=== PATIENT | female | born 1975 | race African-American/Black ===

== ENCOUNTER 2017-12-24 08:20 | Emergency (ER) | payer BC, OTHER ==
[2017-12-24] MEDS ORDERED: Dexamethasone 4 mg/ml Vial ONE (09:22)
[2017-12-24] MEDS ORDERED: Ibuprofen 200 MG TAB ONE (09:22)
[2017-12-24] MEDS ORDERED: Bicillin LA 1.2 MILLION UNITS/2 ML SYRINGE ONE (09:25)
== END 2017-12-24 09:52 | disposition home or self-care (01) ==
LOC: ERS 08:20
DX: J02.0 Streptococcal pharyngitis (principal); I10 Essential (primary) hypertension; Z79.899 Other long term (current) drug therapy
CPT/HCPCS: 87430; 96372; J0561; J1100

== ENCOUNTER 2020-06-09 10:45 | Outpatient (CLI) | payer OTHER | END 2020-06-09 10:46 | disposition home or self-care (01) | LOC: DTY/OP 10:45 | PROVIDERS: ATTEND Surgery | DX: E66.01 Morbid (severe) obesity due to excess calories (principal) | CPT/HCPCS: 97802 ==

== ENCOUNTER 2020-07-28 12:41 | Outpatient (CLI) | payer OTHER ==
[2020-07-28 15:45] LABS: ALT (SGPT) 32 U/L (8-55); AST (SGOT) 28 U/L (5-34); Albumin 4.2 g/dL (3.5-5.0); Alkaline Phosphatase 112 U/L (40-110); Anion Gap 14 mmol/L (10-20); BUN (Urea Nitrogen) 15 mg/dL (7.0-18.7); Bilirubin, Total 0.5 mg/dL (0.2-1.2); Calc. Creatinine Clearance 0 mL/min (70-130); Calcium 9.3 mg/dL (7.8-10.44); Carbon Dioxide 27 mmol/L (22-29); Chloride 102 mmol/L (98-107); Glucose 84 mg/dL (70-105); Potassium 3.6 mmol/L (3.5-5.1); Protein, Total 8.2 g/dL (6.0-8.3); Sodium 139 mmol/L (136-145)
[2020-07-28 15:54] LABS: #Basophils 0.1 10x3/uL (0.0-0.2); #Eosinphils 0.2 10x3/uL (0.0-0.5); #Monocytes 0.6 10x3/uL (0.0-1.1); %Eosinophils 1.9 % (0.0-6.0); %Monocytes 7.8 % (0.0-10.0); Mean Corpuscular HGB CONC 33.3 g/dL (32.0-36.0); Mean Corpuscular Hemoglobin 29.9 pg (27.0-33.0); Mean Corpuscular Volume 89.7 fl (81.6-98.3); Mean Platelet Volume 9.7 fl (7.4-10.4); Platelet Count 334 10x3/uL (150-450); RBC Distribution Width 12.7 % (11.5-14.5); Red Blood Cell (RBC) Count 4.35 10x6/uL (3.90-5.03); White Blood Cell (WBC) Count 7.7 10x3/uL (3.5-10.5)
[2020-07-28 15:59] LABS: #Neutrophils 3.3 10x3/uL (1.5-8.4); %Neutrophils 43.3 % (40.0-75.0)
[2020-07-28 20:38] LABS: Hemoglobin A1c 5.5 % (4.0-6.0)
[2020-07-29 00:37] LABS: SARS-CoV-2 PCR by NAA Not Detected (NotDetected)
== END 2020-07-28 12:42 | disposition home or self-care (01) ==
LOC: LABBT 12:41
PROVIDERS: ATTEND Surgery
DX: Z01.818 Encounter for other preprocedural examination (principal); E66.01 Morbid (severe) obesity due to excess calories; Z20.822 Contact with and (suspected) exposure to COVID-19
CPT/HCPCS: 71046; 80053; 83036; 85025; 87635; 93005; 93010; U0003; U0005

== ENCOUNTER 2020-08-09 13:29 | Outpatient (CLI) | payer OTHER ==
[2020-08-10 04:03] LABS: SARS-CoV-2 PCR by NAA Not Detected (NotDetected)
== END 2020-08-09 13:30 | disposition home or self-care (01) ==
LOC: LABBT 13:29
PROVIDERS: ATTEND Surgery
DX: Z01.812 Encounter for preprocedural laboratory examination (principal); E66.01 Morbid (severe) obesity due to excess calories; Z20.822 Contact with and (suspected) exposure to COVID-19
CPT/HCPCS: 87635; U0003; U0005

== ENCOUNTER 2020-08-12 07:12 | Inpatient (IN) | payer OTHER ==
[2020-08-11 09:45] VITALS: BMI 37.9
[2020-08-12] MEDS ORDERED: Scopolamine 1.5 mg/72 hour Patch ONE (07:59)
[2020-08-12] MEDS ORDERED: Midazolam HCl 2 mg/2 ml Vial ONE ×2 (07:59→08:29)
[2020-08-12] MEDS ORDERED: Heparin 5,000 UNITS/ML VIAL ONE (07:59)
[2020-08-12] MEDS ORDERED: Bupivacaine 0.25% HCL 30 ML VIAL ONE (08:27)
[2020-08-12] MEDS ORDERED: Lidocaine 2% w/Epinephrine 1:200K 20 ML VIAL ONE (08:27)
[2020-08-12] MEDS ORDERED: Fentanyl 100 MCG/2 ML VIAL ONE (08:29)
[2020-08-12] MEDS ORDERED: Dexamethasone 20 MG/5 ML VIAL ONE (08:55)
[2020-08-12] MEDS ORDERED: PROPOFOL 200 MG/20 ML VIAL ONE (08:55)
[2020-08-12] MEDS ORDERED: Lidocaine 1% PF 5 ML VIAL ONE (08:55)
[2020-08-12] MEDS ORDERED: Ondansetron PF 4 MG/2 ML Vial ONE (08:55)
[2020-08-12] MEDS ORDERED: Ketorolac Tromethamine 30 MG/ML VIAL ONE (08:55)
[2020-08-12] MEDS ORDERED: Glycopyrrolate 0.2 MG/ML 5 ML SYRINGE ONE (08:55)
[2020-08-12] MEDS ORDERED: Rocuronium Bromide 10 MG/ML (10ML VIAL) ONE (08:55)
[2020-08-12] MEDS ORDERED: PHENYLEPHRINE-NS 100 MCG/ML 10 ML SYRINGE ONE (08:55)
[2020-08-12] MEDS ORDERED: Promethazine HCl 25 MG/ML VIAL IM PRN ×3 (09:39→10:44)
[2020-08-12] MEDS ORDERED: Ondansetron HCl/PF 4 MG/2 ML Vial IVP PRN (09:39)
[2020-08-12] MEDS ORDERED: Meperidine HCl/PF 25 MG/ML VIAL SLOW IVP PRN (09:39)
[2020-08-12] MEDS ORDERED: Promethazine HCl 25 MG/ML VIAL SLOW IVP PRN (09:39)
[2020-08-12] MEDS ORDERED: Dextrose 5% in Water 1,000 ML IV PRN (10:11)
[2020-08-12] MEDS ORDERED: Dextrose 50% Abboject 50 ML SYRINGE SLOW IVP PRN (10:11)
[2020-08-12] MEDS ORDERED: Ondansetron PF 4 MG/2 ML Vial IVP PRN (10:11)
[2020-08-12] MEDS ORDERED: diphenhydrAMINE 50 MG/ML VIAL IVP PRN ×2 (10:11→10:44)
[2020-08-12] MEDS ORDERED: Hydrocodone-Acetamin 15 ML UDCUP PO PRN (10:11)
[2020-08-12] MEDS ORDERED: hydrALAZINE 20 MG/ML VIAL SLOW IVP PRN (10:11)
[2020-08-12] MEDS ORDERED: diphenhydrAMINE 50 MG/ML VIAL IM PRN (10:44)
[2020-08-12] MEDS ORDERED: fentaNYL Citrate/PF 2,000 MCG in Sodium Chloride 0.9% 60 ML IV PRN (10:44)
[2020-08-12] MEDS ORDERED: Zolpidem Tartrate 5 MG TAB PO PRN (10:44)
[2020-08-12] MEDS ORDERED: diphenhydrAMINE 25 MG CAP PO PRN (10:44)
[2020-08-12] MEDS ORDERED: Naloxone HCl 0.4 mg/ml Vial IV PRN (10:44)
[2020-08-12] MEDS ORDERED: Sodium Chloride 0.9% (PF) 10 ML VIAL FS PRN (10:45)
[2020-08-12] MEDS ORDERED: Communication Order-Pharmacy FS SCH (10:45)
[2020-08-12] MEDS ORDERED: Promethazine HCl 25 MG/ML VIAL ONE (11:07)
[2020-08-12] MEDS ORDERED: hydrALAZINE 20 MG/ML VIAL ONE (11:39)
[2020-08-12] MEDS: D5 1/2 NS w/20 mEq KCL 1,000 ML IV SCH ×3 (13:11→23:33)
[2020-08-12] MEDS: CEFAZOLIN 2 GM in Premix Bag 1 BAG IVPB SCH ×2 (16:15→23:34)
[2020-08-12] MEDS: Ondansetron PF 4 MG/2 ML Vial IVP PRN (23:34)
[2020-08-13 06:56] LABS: #Monocytes 0.8 thou/uL (0.11-0.59); #Neutrophils 10.8 thou/uL (1.40-6.50); %Basophils 0.3 % (0.0-1.0); %Eosinophils 0.2 % (0.0-10.0); %Lymphocytes 14.9 % (21.0-51.0); %Monocytes 5.8 % (0.0-10.0); %Neutrophils 78.8 % (42.0-75.0); Hemoglobin 13.7 g/dL (12.0-16.0); Mean Corpuscular HGB CONC 35.8 g/dL (32.0-36.0); Mean Corpuscular Hemoglobin 32.4 pg (27.0-31.0); Mean Corpuscular Volume 90.6 fL (78.0-98.0); Mean Platelet Volume 6.8 fL (7.4-10.4); Platelet Count 325 thou/uL (130-400); RBC Distribution Width 12.4 % (11.5-14.5); Red Blood Cell (RBC) Count 4.23 mill/uL (4.20-5.40); White Blood Cell (WBC) Count 13.7 thou/uL (4.8-10.8)
[2020-08-13 07:11] LABS: Anion Gap 11 mmol/L (10-20); BUN (Urea Nitrogen) 6 mg/dL (7.0-18.7); Calc. Creatinine Clearance 175 mL/min (70-130); Calcium 9.1 mg/dL (7.8-10.44); Carbon Dioxide 27 mmol/L (22-29); Chloride 101 mmol/L (98-107); Glucose 133 mg/dL (70-105); Potassium 3.7 mmol/L (3.5-5.1); Sodium 135 mmol/L (136-145)
[2020-08-13] MEDS ORDERED: Pantoprazole 40 MG VIAL IVP SCH (09:00)
[2020-08-13] MEDS ORDERED: Enoxaparin Sodium 40 MG/0.4 ML SYRINGE SC SCH (09:00)
[2020-08-13] MEDS ORDERED: Amlodipine 5 MG TAB PO SCH (09:00)
[2020-08-13] MEDS: D5 1/2 NS w/20 mEq KCL 1,000 ML IV SCH (09:17)
[2020-08-13] MEDS: Ondansetron PF 4 MG/2 ML Vial IVP PRN (09:27)
[2020-08-13 10:57] VITALS: BP 155/98; TEMP 97.8
[2020-08-13] MEDS ORDERED: Hydrocodone-Acetamin 15 ML UDCUP PO PRN (12:15)
== END 2020-08-13 14:15 | disposition home or self-care (01) | DRG 621 ==
LOC: SDC 07:12 → SURG A 10:11
PROVIDERS: ADMIT Surgery; ATTEND Surgery
PROC: 0DB64Z3 Excision of Stomach, Percutaneous Endoscopic Approach, Vertical (ICD-10-PCS; principal; 2020-08-12)
PROC: 0DJ68ZZ Inspection of Stomach, Via Natural or Artificial Opening Endoscopic (ICD-10-PCS; 2020-08-12)
DX: E66.01 Morbid (severe) obesity due to excess calories (principal); I10 Essential (primary) hypertension; M19.90 Unspecified osteoarthritis, unspecified site; Z90.710 Acquired absence of both cervix and uterus; Z68.37 Body mass index [BMI] 37.0-37.9, adult
CPT/HCPCS: 36415; 80048; 85025; 88307; 88312; C9113; J0360; J0690; J1100; J1644; J1650; J1885; J2250; J2405; J2550; J2704; J3010; J3480; J3490; S0020

== ENCOUNTER 2020-12-16 03:06 | Emergency (ER) | payer OTHER ==
[2020-12-16] MEDS ORDERED: Meclizine HCl 25 MG TAB ONE (04:20)
[2020-12-16] MEDS ORDERED: Ondansetron ODT 4 MG TAB ONE ×2 (04:20→04:24)
[2020-12-16 05:20] LABS: #Basophils 0.1 thou/uL (0.0-0.2); #Eosinphils 0.1 thou/uL (0.0-0.7); #Lymphocytes 2.3 thou/uL (1.20-3.40); #Monocytes 0.4 thou/uL (0.11-0.59); #Neutrophils 3.9 thou/uL (1.40-6.50); %Eosinophils 1.9 % (0.0-10.0); %Lymphocytes 33.9 % (21.0-51.0); %Monocytes 5.6 % (0.0-10.0); %Neutrophils 57.7 % (42.0-75.0); Mean Corpuscular HGB CONC 34.4 g/dL (32.0-36.0); Mean Corpuscular Hemoglobin 31.2 pg (27.0-31.0); Mean Corpuscular Volume 90.8 fL (78.0-98.0); Platelet Count 275 thou/uL (130-400); RBC Distribution Width 12.5 % (11.5-14.5); Red Blood Cell (RBC) Count 4.17 mill/uL (4.20-5.40); White Blood Cell (WBC) Count 6.7 thou/uL (4.8-10.8)
[2020-12-16 05:43] LABS: ALT (SGPT) 21 U/L (8-55); AST (SGOT) 23 U/L (5-34); Alkaline Phosphatase 90 U/L (40-110); Anion Gap 10 mmol/L (10-20); BUN (Urea Nitrogen) 7 mg/dL (7.0-18.7); Bilirubin, Total 0.6 mg/dL (0.2-1.2); Calc. Creatinine Clearance 0 mL/min (70-130); Calcium 9.5 mg/dL (7.8-10.44); Carbon Dioxide 29 mmol/L (22-29); Chloride 103 mmol/L (98-107); Globulin 4.1 g/dL (2.4-3.5); Glucose 119 mg/dL (70-105); Protein, Total 8.1 g/dL (6.0-8.3); Sodium 139 mmol/L (136-145)
[2020-12-16 05:47] LABS: Potassium 2.9 mmol/L (3.5-5.1)
[2020-12-16] MEDS ORDERED: Potassium Chloride 20 MEQ TAB ONE (06:01)
== END 2020-12-16 06:59 | disposition home or self-care (01) ==
LOC: ERS 03:06
DX: R42 Dizziness and giddiness (principal); E87.6 Hypokalemia; R11.10 Vomiting, unspecified; I10 Essential (primary) hypertension; Z79.899 Other long term (current) drug therapy
CPT/HCPCS: 36415; 80053; 83735; 85025; 93005; Q0162